=== PATIENT | female | born 1950 | race Caucasian/White ===

== ENCOUNTER 2017-11-14 15:06 | Inpatient (IN) | payer MEDICARE, MEDICAID ==
[~2017-11-14] VITALS: Ht 175.3 cm; Wt 70.8 kg
[~2017-11-14 15:06] MED LIST: ASPI81TA31 PO; Acetaminophen PO; CALC1TAB90 PO; CALC500T63 PO; CINA60TA PO; DEXL60CA3 PO; DOCU-141 PO; Docusate Sodium PO; FERR-38 PO; FOLI0.8T7 PO; PANT40TA2 PO; RISP1TAB7 PO; SEVE800T8 PO; TIZA4CAP6 PO; Tizanidine Hcl PO
[2017-11-14] MEDS ORDERED: IV NORMAL SALINE 500 ML BAG IV ONE (15:30)
[2017-11-14] MEDS ORDERED: ONDANSETRON 4 MG/2 ML VIAL IV ONE (15:30)
[2017-11-14] MEDS ORDERED: ACET-1467 PO (15:38)
[2017-11-14] MEDS ORDERED: SIME80TA14 PO (15:38)
[2017-11-14] MEDS ORDERED: SUCR1TAB PO (15:38)
[2017-11-14] MEDS ORDERED: ONDA4TAB5 PO (15:38)
[2017-11-14] MEDS ORDERED: PROT946L PO (15:38)
[2017-11-14] MEDS ORDERED: METH57CR8 TOP (15:38)
[2017-11-14 15:39] LABS: BASOPHILS % (AUTO) 0.2 % (0.0-2.0); EOSINOPHILS % (AUTO) 0.4 % (0.0-7.0); HEMATOCRIT 35.2 % (31.2-41.9); HEMOGLOBIN 11.6 g/dL (10.9-14.3); MEAN CORPUSCULAR HEMOGLOBIN 32.2 uug (24.7-32.8); MEAN CORPUSCULAR HGB CONC 33 g/dL (32.3-35.6); MEAN CORPUSCULAR VOLUME 97.5 fL (75.5-95.3); MONOCYTES # (AUTO) 0.5 K/uL (2.0-10.0); MONOCYTES % (AUTO) 6.5 % (0.0-11.0); NEUTROPHILS # (AUTO) 6.4 K/uL (1.8-8.9); NEUTROPHILS % (AUTO) 80.9 % (38.5-71.5); PLATELET COUNT (AUTO) 155 K/uL (179-408); RED BLOOD CELL COUNT(AUTO) 3.61 MIL/uL (3.63-4.92); WHITE BLOOD COUNT (AUTO) 7.9 K/uL (3.8-11.8)
[2017-11-14] MEDS ORDERED: ONDANSETRON 4 MG/2 ML VIAL ONE (15:43)
[2017-11-14 15:45] LABS: POTASSIUM 5.7 mmol/L (3.5-5.1)
[2017-11-14 16:00] LABS: BILIRUBIN,DIRECT 0.1 mg/dL (0.0-0.2); BILIRUBIN,TOTAL 0.4 mg/dL (0.2-1.0); TOTAL PROTEIN, SERUM 6.6 g/dL (6.4-8.2)
[2017-11-14 16:31] LABS: *BILIRUBIN,URIN NEGATIVE (NEGATIVE); *BLOOD, URINE NEGATIVE (NEGATIVE); *CLARITY,URINE CLEAR (CLEAR); *COLOR,URINE YELLOW (YELLOW); *KETONES,URINE NEGATIVE (NEGATIVE); *PROTEIN,URINE 3+ (NEGATIVE); *UROBILINOGEN,URINE 0.2 E.U./dl (NORMAL); LEUKOCYTE ESTERASE ,URINE NEGATIVE (NEGATIVE); NITRITE, URINE NEGATIVE (NEGATIVE); PH,URINE 8.5 (5.0-8.0); UGLUCOSE NEGATIVE (NEGATIVE)
[2017-11-14 16:41] LABS: SQUAMOUS EPITHELIAL CELL,UR FEW /HPF (NONE SEEN); WBC,URINE 0-3 /HPF (0-3)
[2017-11-14] MEDS ORDERED: SODIUM BICARBONATE 8.4% 50 MEQ/50 ML DISP.SYRIN IV ONE ×2 (18:43→18:45)
--- NOTE | 2017-11-14 18:46 | NUR ---
Patient discharged to home in stable conditon. Written and verbal after care instructions given. Patient verbalizes understanding of instructions.pt transfered to tele in stable condition. pt marielena david cp, nausea, sob at this time.
--- NOTE | 2017-11-14 18:52 | NUR ---
67 year old female received from er via iconDial for hyperkalemia v/s are stable.call light with in reach
[2017-11-14 18:55] VITALS: BP 145/58
--- NOTE | 2017-11-14 19:15 | NUR ---
RECEIVED REPORT FROM YAO FELIX. PT ARRIVED ON UNIT FLOOR AT 1845. WILL BE ADMITTING PT TO TELE PER MD ORDER. PT CURRENTLY IN BED, NO C/O PAIN, C/P, SOB, N/V. BED IN LOW AND LOCKED POSITION WITH BILATERAL UPPER SIDERAILS UP. CALL LIGHT WITHIN REACH. WILL ADMIN MEDS ORDERED BY MD. WILL CONTINUE TO MONITOR AND PROVIDE SAFETY PRECAUTIONS.
[2017-11-14] MEDS ORDERED: RISP0.253 PO (19:42)
[2017-11-14] MEDS ORDERED: ONDANSETRON HCL 4 MG TABLET PO PRN (19:45)
[2017-11-14] MEDS ORDERED: ACETAMINOPHEN/CODEINE 300-30 MG TABLET PO PRN (19:45)
[2017-11-14] MEDS ORDERED: METHYL SALICYLATE/MENTHOL CREAM 28 GM TUBE TOP PRN (19:45)
[2017-11-14] MEDS ORDERED: SIMETHICONE 80 MG TAB.CHEW PO PRN ×2 (19:45→20:55)
[2017-11-14] MEDS ORDERED: ACETAMINOPHEN 325 MG TABLET PO PRN (19:45)
[2017-11-14] MEDS ORDERED: TIZANIDINE HCL 4 MG TABLET PO PRN (19:45)
[2017-11-14 20:00] VITALS: BP 131/52
[2017-11-14] MEDS ORDERED: ONDANSETRON 4 MG/2 ML VIAL IV PRN (20:00)
[2017-11-14] MEDS ORDERED: SUCRALFATE 1 G TABLET PO SCH (21:00)
[2017-11-14] MEDS: DOCUSATE SODIUM 100 MG CAPSULE PO SCH (21:08)
[2017-11-14] MEDS: risperiDONE 0.25 MG TABLET PO SCH (21:08)
--- NOTE | 2017-11-15 | NUR ---
PT SLEEPING IN BED, EASILY AROUSABLE. PT DOES NOT APPEAR TO BE IN ANY APPARENT DISTRESS. PT NSR ON TELE MONITORING, HR 80. CALL LIGHT WITHIN REACH. WILL CONTINUE TO MONITOR.
[2017-11-15 04:00] VITALS: BP 127/41
--- NOTE | 2017-11-15 05:26 | NUR ---
PT SLEEPING COMFORTABLY IN BED, EASILY AROUSABLE. NO SIGNS OF APPARENT DISTRESS. NSR ON TELE MONITORING, HR 77. CALL LIGHT WITHIN REACH.
[2017-11-15 06:30] LABS: CREATININE 5.9 mg/dL (0.6-1.3); POTASSIUM 5.6 mmol/L (3.5-5.1)
[2017-11-15 06:47] LABS: BASOPHILS % (AUTO) 0.2 % (0.0-2.0); EOSINOPHILS # (AUTO) 0.1 K/uL (0.0-0.7); EOSINOPHILS % (AUTO) 1.1 % (0.0-7.0); HEMOGLOBIN 10.1 g/dL (10.9-14.3); LYMPHOCYTES # (AUTO) 1.6 K/uL (20.0-40.0); MEAN CORPUSCULAR HEMOGLOBIN 32.4 uug (24.7-32.8); MEAN CORPUSCULAR HGB CONC 33 g/dL (32.3-35.6); MEAN CORPUSCULAR VOLUME 98.3 fL (75.5-95.3); MONOCYTES # (AUTO) 0.5 K/uL (2.0-10.0); MONOCYTES % (AUTO) 8.3 % (0.0-11.0); NEUTROPHILS # (AUTO) 3.8 K/uL (1.8-8.9); NEUTROPHILS % (AUTO) 63.4 % (38.5-71.5); PLATELET COUNT (AUTO) 132 K/uL (179-408); RED BLOOD CELL COUNT(AUTO) 3.13 MIL/uL (3.63-4.92)
[2017-11-15 06:57] LABS: HEMATOCRIT 30.7 % (31.2-41.9)
[2017-11-15] MEDS: PROTEIN SUPPLEMENT (PROSTAT) 30 ML LIQUID PO SCH ×3 (08:00→16:15)
[2017-11-15] MEDS: TIZANIDINE HCL 4 MG TABLET PO SCH (08:30)
[2017-11-15] MEDS: PANTOPRAZOLE SODIUM 40 MG TABLET.DR PO SCH (08:30)
[2017-11-15] MEDS: SEVELAMER CARBONATE 800 MG TABLET PO SCH ×3 (08:30→17:04)
[2017-11-15] MEDS: FERROUS SULFATE 325 MG TABEC PO SCH (08:30)
[2017-11-15] MEDS: ASPIRIN 81 MG TAB.CHEW PO SCH (08:30)
[2017-11-15] MEDS: FOLIC ACID/VITAMIN B COMP W-C TABLET PO SCH (08:30)
[2017-11-15 11:18] VITALS: BP 74/37
--- NOTE | 2017-11-15 12:31 | NUR ---
AWAKE ALERT AND ORIENTED X3 NO SS OF PAIN OR DISTRESS AWAITING HEMODIALYSIS
--- NOTE | 2017-11-15 12:31 | NUR ---
TOLERATING ONGOING HEMODIALYSIS, SR ON MONITOR
--- NOTE | 2017-11-15 12:33 | NUR ---
SEEN BY HOSPITALIST SEE NOTES
[2017-11-15 15:26] VITALS: BP 109/46
[2017-11-15] MEDS: SUCRALFATE 1 G TABLET PO SCH ×2 (16:08→20:03)
--- NOTE | 2017-11-15 19:20 | NUR ---
Received patient lying in bed. AAOX3. Denies any pain or SOB. In no acute distress. NSR on tele. AV shunt on left upper arm intact. IV site on right wrist intact and patent. Safety measure initiated and call heck within reach.
[2017-11-15 19:30] VITALS: BP 140/57
--- NOTE | 2017-11-15 19:53 | NUR ---
Telemetry discontinued per Dr. Werner's order.
[2017-11-15] MEDS: risperiDONE 0.25 MG TABLET PO SCH (20:02)
[2017-11-15] MEDS: DOCUSATE SODIUM 100 MG CAPSULE PO SCH (20:02)
[2017-11-15] MEDS: CINACALCET HCL 30 MG TABLET PO SCH (20:02)
[2017-11-16 03:47] VITALS: BP 117/44
[2017-11-16] MEDS: SUCRALFATE 1 G TABLET PO SCH ×5 (06:32→20:10)
--- NOTE | 2017-11-16 06:35 | NUR ---
AAOX3. Denies any pain or SOB. In no acute distress. NSR on tele. AV shunt on left upper arm intact. IV site on right wrist intact and patent. needs attended to and met. Safety measure maintained and call heck within reach. Addendum: 11/16/17 at 0635 by ISAURA RANDHAWA RN No tele.
[2017-11-16] MEDS: ONDANSETRON 4 MG/2 ML VIAL IV PRN (07:53)
[2017-11-16] MEDS: PROTEIN SUPPLEMENT (PROSTAT) 30 ML LIQUID PO SCH ×4 (08:00→16:50)
[2017-11-16] MEDS: SEVELAMER CARBONATE 800 MG TABLET PO SCH ×3 (08:00→16:50)
[2017-11-16] MEDS: ASPIRIN 81 MG TAB.CHEW PO SCH (09:00)
[2017-11-16] MEDS: PANTOPRAZOLE SODIUM 40 MG TABLET.DR PO SCH (09:00)
[2017-11-16] MEDS: TIZANIDINE HCL 4 MG TABLET PO SCH (09:00)
[2017-11-16] MEDS: FOLIC ACID/VITAMIN B COMP W-C TABLET PO SCH (09:00)
[2017-11-16] MEDS: FERROUS SULFATE 325 MG TABEC PO SCH (09:00)
--- NOTE | 2017-11-16 09:57 | NUR ---
PATIENT STATES THE NAUSEA FEELING JUST WENT AWAY AND DOES NOT WANT TO TAKE ANY MEDICATIONS AND HAVE IT COME BACK
[2017-11-16 11:22] VITALS: BP 129/51
[2017-11-16 11:32] LABS: *BILIRUBIN,URIN NEGATIVE (NEGATIVE); *BLOOD, URINE NEGATIVE (NEGATIVE); *CLARITY,URINE CLEAR (CLEAR); *COLOR,URINE LIGHT YELLOW (YELLOW); *KETONES,URINE NEGATIVE (NEGATIVE); *PROTEIN,URINE 2+ (NEGATIVE); *UROBILINOGEN,URINE 0.2 E.U./dl (NORMAL); LEUKOCYTE ESTERASE ,URINE 1+ (NEGATIVE); NITRITE, URINE NEGATIVE (NEGATIVE); PH,URINE 8.5 (5.0-8.0); UGLUCOSE NEGATIVE (NEGATIVE)
[2017-11-16 11:42] LABS: BACTERIA,URINE FEW /HPF (NONE SEEN); RBC,URINE 0-3 /HPF (0-3); SQUAMOUS EPITHELIAL CELL,UR FEW /HPF (NONE SEEN)
[2017-11-16 15:28] VITALS: BP 113/51
--- NOTE | 2017-11-16 17:50 | NUR ---
PATIENT DENIES NAUSEA AT THIS TIME, URINE SENT PER ORDERS, PATIENT RECEIVING HD AT THIS TIME, VSS, NO FALLS THROUGHOUT SHIFT, CALL LIGHT IN REACH
[2017-11-16 19:00] VITALS: BP 135/53
--- NOTE | 2017-11-16 19:15 | NUR ---
Received patient lying in bed. AAOX3. Denies any pain, SOB or nausea. In no acute distress. AV shunt on left upper arm intact. IV site on right wrist intact and patent. Needs assessed and attended to. Safety measure initiated and call heck within reach.
[2017-11-16] MEDS: CINACALCET HCL 30 MG TABLET PO SCH (20:09)
[2017-11-16] MEDS: risperiDONE 0.25 MG TABLET PO SCH (20:10)
[2017-11-16] MEDS: DOCUSATE SODIUM 100 MG CAPSULE PO SCH (20:10)
[2017-11-17 04:00] VITALS: BP 135/56
--- NOTE | 2017-11-17 06:19 | NUR ---
AAOX3. Denies any pain or SOB. In no acute distress. AV shunt on left upper arm intact. IV site on right wrist intact and patent. Needs attended to and met. Safety measure maintained and call heck within reach.
[2017-11-17] MEDS: SUCRALFATE 1 G TABLET PO SCH ×4 (06:31→20:12)
--- NOTE | 2017-11-17 07:00 | NUR ---
RECEIVED REPORT FROM RYANN COOMBS. PATIENT IN ROOM, ASLEEP, AAOX3 NO ACUTE DISTRESS NOTED. IV SITE ON THE RIGHT WRIST #22 INTACT AND PATENT. LEFT UPPER ARM AV SHUNT NOTED. INDEPENDENT WITH ADLS, AMBULATORY W/ 4WW, DIALYSIS YESTERDAY 1L TAKEN OUT. COMFORT MEASURES PROVIDED CALL LIGHT WITHIN REACH WILL CONTINUE TO MONITOR CLOSELY.
[2017-11-17 07:51] LABS: CREATININE 3.9 mg/dL (0.6-1.3); POTASSIUM 4.3 mmol/L (3.5-5.1)
[2017-11-17] MEDS: FOLIC ACID/VITAMIN B COMP W-C TABLET PO SCH (08:30)
[2017-11-17] MEDS: PROTEIN SUPPLEMENT (PROSTAT) 30 ML LIQUID PO SCH ×3 (08:30→17:12)
[2017-11-17] MEDS: PANTOPRAZOLE SODIUM 40 MG TABLET.DR PO SCH (08:30)
[2017-11-17] MEDS: SEVELAMER CARBONATE 800 MG TABLET PO SCH ×3 (08:30→17:12)
[2017-11-17] MEDS: ASPIRIN 81 MG TAB.CHEW PO SCH (08:30)
[2017-11-17] MEDS: FERROUS SULFATE 325 MG TABEC PO SCH (08:30)
[2017-11-17] MEDS: TIZANIDINE HCL 4 MG TABLET PO SCH (08:30)
[2017-11-17] MEDS: ONDANSETRON 4 MG/2 ML VIAL IV PRN (08:38)
[2017-11-17 11:40] VITALS: BP 105/45
[2017-11-17 16:09] VITALS: BP 103/65
[2017-11-17 16:11] VITALS: BP 100/68
--- NOTE | 2017-11-17 17:45 | NUR ---
PATIENT IN BED, AWAKE, STABLE CONDITION. NAUSEA EPISODE X 1, ZOFRAN PRN GIVEN, WELL TOLERATED. NO COMPLAINTS OF N/V THE REST OF SHIFT. VITAL SIGNS STABLE. NO COMPLAINTS OF PAIN/DISCOMFORT. ALL NEEDS ATTENDED AND ANTICIPATED. WILLC OTNINUE TO MONITOR CLOSELY.
[2017-11-17 19:00] VITALS: BP 116/51
[2017-11-17] MEDS: CINACALCET HCL 30 MG TABLET PO SCH (20:11)
[2017-11-17] MEDS: DOCUSATE SODIUM 100 MG CAPSULE PO SCH (20:12)
[2017-11-17] MEDS: risperiDONE 0.25 MG TABLET PO SCH (20:12)
--- NOTE | 2017-11-17 21:00 | NUR ---
Nursing Note: Pt resting comfortably in bed. Respirations even and unlabored. R Wrist 20g IV site intact and patent. Bowel sounds present in all 4 quadrants. Abdomen soft and non distended. No complaints of nausea or vomiting at this time. All due medications administered and effective. Bed in low and locked position. Call light in reach at all times. Will continue to monitor.
--- NOTE | 2017-11-18 | NUR ---
Nursing Note: Pt noted to be sleeping. No acute distress noted at this time. No nausea, vomiting diarrhea or constipation. Bed in low and locked position. Call light in reach at all times. Will continue to monitor.
[2017-11-18 04:00] VITALS: BP 140/65
--- NOTE | 2017-11-18 05:33 | NUR ---
Nursing Note: Pt appears to be sleeping soundly at this time. Frequent visual check. Bed in low and locked position. Pt on fall precautions. Call light in reach all times. No episodes of vomiting. Will continue to monitor.
[2017-11-18] MEDS: SUCRALFATE 1 G TABLET PO SCH ×2 (06:49→11:23)
[2017-11-18] MEDS: PROTEIN SUPPLEMENT (PROSTAT) 30 ML LIQUID PO SCH ×2 (08:44→11:23)
[2017-11-18] MEDS: PANTOPRAZOLE SODIUM 40 MG TABLET.DR PO SCH (08:45)
[2017-11-18] MEDS: FOLIC ACID/VITAMIN B COMP W-C TABLET PO SCH (08:45)
[2017-11-18] MEDS: FERROUS SULFATE 325 MG TABEC PO SCH (08:45)
[2017-11-18] MEDS: ASPIRIN 81 MG TAB.CHEW PO SCH (08:45)
[2017-11-18] MEDS: TIZANIDINE HCL 4 MG TABLET PO SCH (08:45)
[2017-11-18] MEDS: SEVELAMER CARBONATE 800 MG TABLET PO SCH ×2 (08:45→11:23)
--- NOTE | 2017-11-18 08:50 | NUR ---
NEW ORDERS NOTED FROM DR GEE TO DISCHARGE PATIENT HOME TODAY PATIENT STATED THAT SHE LIVES AT THE [facility] WILL HAVE THE ASSEMBLY MACHINE FEEDER TO ARRANGE FOR HER FINAL DISPOSITION.
[2017-11-18 11:33] VITALS: BP 100/40
--- NOTE | 2017-11-18 14:07 | NUR ---
PER THE VAULT MANAGER [facility] IS NOT ABLE TO PICK PATIENT UP STATED STATED WILL ARRANGE FOR PATIENT TO BE TRANSPORTED BY [facility] PATIENT AWARE WILL FINALISE THE DISCHARGE.
--- NOTE | 2017-11-18 15:05 | NUR ---
CALLED THE [facility] AND SPOKE WITH JOHN PATIENT HAS A [facility] VOUCHER SOMEONE WILL BE HERE TO PICK PATIENT UP
--- NOTE | 2017-11-18 15:45 | NUR ---
[facility] STILL NOT HERE CALLED AGAIN AND SPOKE WITH KELLI STATED THAT SOMEONE IS COMING SOON POSSIBLE.
--- NOTE | 2017-11-18 15:50 | NUR ---
PATIENT DISCHARGED PICKED UP BY [facility] WITH ALL OF HER DISCHARGE INSTRUCTIONS TO FOLLOW UP WITH DR VYAS AND DR RIVAS AND TO CONTINUE WITH DIALYSIS ORDERED AND SHE EXPRESSED UNDERSTANDING
--- NOTE | 2017-11-18 15:52 | NUR ---
CALLED [facility] SPOKE WITH KELLI PAYTON PATIENT IS ON HER WAY AND SOMEONE NEEDED TO BE WAITING FOR HER WITH A W/CHAIR AND SHE STATED WILL INFORM THE MACHINE SET UP OPERATOR P[employer]ER GOODS.
== END 2017-11-18 15:50 | DRG 640 ==
LOC: ER 15:09 → TELE 18:08 → MED 11-15 19:53
PROVIDERS: ADMIT Internal Medicine Nephrology; ATTEND Internal Medicine
PROC: 5A1D70Z Performance of Urinary Filtration, Intermittent, Less than 6 Hours Per Day (ICD-10-PCS; principal; 2017-11-15)
DX: E87.5 Hyperkalemia (principal); N18.6 End stage renal disease; R53.2 Functional quadriplegia; I12.0 Hypertensive chronic kidney disease with stage 5 chronic kidney disease or end stage renal disease; K52.9 Noninfective gastroenteritis and colitis, unspecified; Z99.2 Dependence on renal dialysis; E83.52 Hypercalcemia; T45.2X5A Adverse effect of vitamins, initial encounter; Y92.099 Unspecified place in other non-institutional residence as the place of occurrence of the external cause; G89.4 Chronic pain syndrome; M47.26 Other spondylosis with radiculopathy, lumbar region; M46.98 Unspecified inflammatory spondylopathy, sacral and sacrococcygeal region; M46.1 Sacroiliitis, not elsewhere classified; M48.00 Spinal stenosis, site unspecified; M19.90 Unspecified osteoarthritis, unspecified site; K21.9 Gastro-esophageal reflux disease without esophagitis; M51.17 Intervertebral disc disorders with radiculopathy, lumbosacral region; D69.6 Thrombocytopenia, unspecified; E03.9 Hypothyroidism, unspecified; Z79.899 Other long term (current) drug therapy; Z79.82 Long term (current) use of aspirin; R26.9 Unspecified abnormalities of gait and mobility; D53.9 Nutritional anemia, unspecified; Z91.15 Patient's noncompliance with renal dialysis
CPT/HCPCS: 36415; 70030-TC; 83690; 85025; 87086; 93005; 97116; 97530; A4663; C1758; J2405; J3490; J7040

== ENCOUNTER 2018-07-08 00:43 | Emergency (ER) | payer MEDICARE, MEDICAID ==
[~2018-07-08] VITALS: Ht 175.3 cm; Wt 69.4 kg
[~2018-07-08 00:43] MED LIST changes: +ACET-1467 PO; -CALC1TAB90 PO; -CALC500T63 PO; -DEXL60CA3 PO; -Docusate Sodium PO; +METH57CR8 TOP; +ONDA4TAB5 PO; +PROT946L PO; +RISP0.253 PO; -RISP1TAB7 PO; +SIME80TA14 PO; +SUCR1TAB PO; -Tizanidine Hcl PO
--- NOTE | 2018-07-08 00:56 | NUR ---
Pt bib private ambulance from [facility] with c/o fever of 99.0F & 2 episodes of N/V that started 3 hrs prior to arrival. Pt temp upon triage is 98.2F. Does not appear in apparent distress. No chest pain or sob. AAOx4. Uses walker to ambulate. Pt has shunt to left upper extremity, states does dialysis on [id number]. Pt placed on continuous cardiac monitoring. Will continue to monitor.
[2018-07-08] MEDS ORDERED: VIT1TABL46 PO (01:07)
[2018-07-08] MEDS ORDERED: FOLI1TAB16 PO (01:07)
--- NOTE | 2018-07-08 01:31 | NUR ---
Orthostatic vital signs taken flat - BP 166/74 HR 74 sitting - BP 158/83 HR 75
[2018-07-08] MEDS: ONDANSETRON ODT 4 MG TAB.RAPDIS SL ONE (01:34)
[2018-07-08] MEDS ORDERED: ONDANSETRON ODT 4 MG TAB.RAPDIS ONE (01:35)
[2018-07-08 01:47] LABS: BASOPHILS % (AUTO) 0.6 % (0.0-2.0); EOSINOPHILS % (AUTO) 0.5 % (0.0-7.0); HEMATOCRIT 30.3 % (31.2-41.9); HEMOGLOBIN 9.9 g/dL (10.9-14.3); LYMPHOCYTES # (AUTO) 0.8 K/uL (20.0-40.0); LYMPHOCYTES % (AUTO) 13.5 % (20.5-51.5); MEAN CORPUSCULAR HEMOGLOBIN 30.4 uug (24.7-32.8); MEAN CORPUSCULAR HGB CONC 33 g/dL (32.3-35.6); MEAN CORPUSCULAR VOLUME 93.2 fL (75.5-95.3); MONOCYTES # (AUTO) 0.4 K/uL (2.0-10.0); NEUTROPHILS # (AUTO) 4.9 K/uL (1.8-8.9); NEUTROPHILS % (AUTO) 79.4 % (38.5-71.5); PLATELET COUNT (AUTO) 156 K/uL (179-408); RED BLOOD CELL COUNT(AUTO) 3.25 MIL/uL (3.63-4.92); WHITE BLOOD COUNT (AUTO) 6.1 K/uL (3.8-11.8)
--- NOTE | 2018-07-08 01:57 | NUR ---
Pt resting in bed. States she does not feel nauseous anymore.
[2018-07-08 02:18] LABS: BILIRUBIN,DIRECT 0.2 mg/dL (0.0-0.2); BILIRUBIN,TOTAL 0.4 mg/dL (0.2-1.0); CREATININE 5.5 mg/dL (0.6-1.3); POTASSIUM 4.7 mmol/L (3.5-5.1); TOTAL PROTEIN, SERUM 6.5 g/dL (6.4-8.2)
--- NOTE | 2018-07-08 03:31 | NUR ---
Imtiaz medina for transport back to [facility]. ETA 45 min to 1 hr. Trip#[id number]
--- NOTE | 2018-07-08 03:33 | NUR ---
Gave report to [facility] & informed pt is stable for discharge from ER.
--- NOTE | 2018-07-08 04:00 | NUR ---
Pt is sleeping comfortably in bed. No acute distress noted.
--- NOTE | 2018-07-08 04:30 | NUR ---
Paged carol regarding Trip#[id number]. ETA 20 more min.
--- NOTE | 2018-07-08 05:00 | NUR ---
Ambuln unit 230 here to transfer pt back to [facility]. Patient discharged to home in stable conditon. Written and verbal after care instructions given. Patient verbalizes understanding of instructions. No acute distress noted. Vital signs stable.
[2018-07-08 05:01] VITALS: BP 138/68
== END 2018-07-08 05:03 | disposition home or self-care (01) ==
LOC: ER 00:47
DX: R11.2 Nausea with vomiting, unspecified (principal); K21.9 Gastro-esophageal reflux disease without esophagitis; I12.0 Hypertensive chronic kidney disease with stage 5 chronic kidney disease or end stage renal disease; N18.6 End stage renal disease; Z79.82 Long term (current) use of aspirin; Z79.899 Other long term (current) drug therapy
CPT/HCPCS: 36415; 70030-TC; 71045; 83605; 83690; 85025; 85730; 87040; 93005; A4663; J7030; Q0162

== ENCOUNTER 2018-08-04 22:35 | Inpatient (IN) | payer MEDICARE, MEDICAID ==
[~2018-08-04] VITALS: Ht 165.1 cm; Wt 71.2 kg
[~2018-08-04 22:35] MED LIST changes: -ACET-1467 PO; -FOLI0.8T7 PO; +FOLI1TAB16 PO; -PROT946L PO; +VIT1TABL46 PO
[2018-08-04 23:39] LABS: BASOPHILS % (AUTO) 0.7 % (0.0-2.0); EOSINOPHILS # (AUTO) 0.1 K/uL (0.0-0.7); EOSINOPHILS % (AUTO) 1.3 % (0.0-7.0); HEMATOCRIT 32.4 % (31.2-41.9); HEMOGLOBIN 10.4 g/dL (10.9-14.3); LYMPHOCYTES # (AUTO) 1.2 K/uL (20.0-40.0); LYMPHOCYTES % (AUTO) 18.9 % (20.5-51.5); MEAN CORPUSCULAR HEMOGLOBIN 30.4 uug (24.7-32.8); MEAN CORPUSCULAR HGB CONC 32 g/dL (32.3-35.6); MEAN CORPUSCULAR VOLUME 94.5 fL (75.5-95.3); MONOCYTES # (AUTO) 0.4 K/uL (2.0-10.0); MONOCYTES % (AUTO) 6.4 % (0.0-11.0); NEUTROPHILS # (AUTO) 4.5 K/uL (1.8-8.9); NEUTROPHILS % (AUTO) 72.7 % (38.5-71.5); PLATELET COUNT (AUTO) 124 K/uL (179-408); RED BLOOD CELL COUNT(AUTO) 3.42 MIL/uL (3.63-4.92); WHITE BLOOD COUNT (AUTO) 6.1 K/uL (3.8-11.8)
[2018-08-04 23:44] LABS: CREATININE 4.9 mg/dL (0.6-1.3); POTASSIUM 4.6 mmol/L (3.5-5.1)
[2018-08-04 23:45] LABS: *BILIRUBIN,URIN NEGATIVE (NEGATIVE); *BLOOD, URINE NEGATIVE (NEGATIVE); *CLARITY,URINE CLEAR (CLEAR); *COLOR,URINE YELLOW (YELLOW); *KETONES,URINE NEGATIVE (NEGATIVE); *UROBILINOGEN,URINE 0.2 E.U./dl (NORMAL); LEUKOCYTE ESTERASE ,URINE 1+ (NEGATIVE); NITRITE, URINE NEGATIVE (NEGATIVE); PH,URINE 8.5 (5.0-8.0); UGLUCOSE NEGATIVE (NEGATIVE)
[2018-08-04 23:50] LABS: BACTERIA,URINE NONE SEEN /HPF (NONE SEEN); RBC,URINE 0-3 /HPF (0-3)
[2018-08-04 23:51] LABS: SQUAMOUS EPITHELIAL CELL,UR FEW /HPF (NONE SEEN)
[2018-08-04 23:59] LABS: BILIRUBIN,DIRECT 0.1 mg/dL (0.0-0.2); BILIRUBIN,TOTAL 0.3 mg/dL (0.2-1.0); TOTAL PROTEIN, SERUM 5.8 g/dL (6.4-8.2)
[2018-08-05] MEDS ORDERED: ONDANSETRON 4 MG/2 ML VIAL IV ONE (02:15)
[2018-08-05] MEDS ORDERED: METRONIDAZOLE 500 MG/NS 100 ML PIGGYBACK IV ONE (02:15)
[2018-08-05] MEDS ORDERED: MORPHINE SULFATE 2 MG/1 ML DISP.SYRIN IV ONE (02:15)
[2018-08-05] MEDS ORDERED: LEVOFLOXACIN 500 MG/D5W 100ML PIGGYBACK IV ONE (02:15)
[2018-08-05] MEDS ORDERED: ACET1TAB23 PO (02:18)
[2018-08-05] MEDS ORDERED: ONDA8TAB6 PO (02:18)
[2018-08-05] MEDS ORDERED: FOLI0.8T2 PO (02:18)
[2018-08-05] MEDS ORDERED: MORPHINE SULFATE 2 MG/1 ML DISP.SYRIN ONE (02:19)
[2018-08-05] MEDS ORDERED: ONDANSETRON 4 MG/2 ML VIAL ONE (02:19)
[2018-08-05] MEDS ORDERED: LEVOFLOXACIN 500 MG/D5W 100 ML ONE (02:19)
[2018-08-05] MEDS ORDERED: METRONIDAZOLE 500 MG/NS 100ML 100 ML IV ONE ×2 (02:20→05:36)
--- NOTE | 2018-08-05 03:26 | NUR ---
Antibiotic started in ER, floor nurse to complete once patient arrives on unit.
--- NOTE | 2018-08-05 03:28 | NUR ---
Pt. admitted to m/s 316, under care of Dr. GEE Belongs List completed.
--- NOTE | 2018-08-05 03:45 | NUR ---
Received patient from ER via [facility]. A/O x 4. Ambulatory with [facility]. Patient is hard of hearing. Vital signs stable with a slight elevation of BP 165/54. C/O pain in the right hip area. Awaiting orders from Dr. Nicole. Sating 98% on RA. Noted left upper arm AV shunt, Thrill/bruit present. IV Abx infusing in the right FA, patent and intact. long-term assessment done, skin intact with multiple bruises in upper and lower ext. Bowel sounds present. Abd, soft. Safety initiated. Call light within reach. Room is clutter free. Will continue to monitor.
[2018-08-05 04:00] VITALS: BP 165/54
[2018-08-05] MEDS ORDERED: HYDROCODONE/APAP 5-325MG TABLET PO PRN (05:15)
[2018-08-05] MEDS ORDERED: Z GUARD REMEDY PASTE 57 GM TUBE TOP PRN (05:15)
[2018-08-05] MEDS ORDERED: ACETAMINOPHEN 325 MG TABLET PO PRN (05:15)
[2018-08-05] MEDS ORDERED: ZOLPIDEM 5 MG TABLET PO PRN (05:15)
[2018-08-05] MEDS ORDERED: ONDANSETRON 4 MG/2 ML VIAL IV PRN (05:15)
[2018-08-05] MEDS: METRONIDAZOLE 500 MG/NS 100ML 500 MG in PREMIXED 1 EACH IV SCH ×3 (05:42→21:36)
--- NOTE | 2018-08-05 05:49 | NUR ---
C/O pain in the right hip. 09/08. [place] given, will continue to monitor.
[2018-08-05 05:51] VITALS: BP 146/60
--- NOTE | 2018-08-05 06:11 | NUR ---
No changes t/o shift. C/o pain in the right side. In room air. Vital signs stable but BP is still elevated secondary to the pain. Medication given. Stated relief. BP has gone down 146/72. Safety and comfort measures maintained t/o shift.
[2018-08-05 06:47] LABS: BASOPHILS % (AUTO) 0.2 % (0.0-2.0); EOSINOPHILS # (AUTO) 0.1 K/uL (0.0-0.7); EOSINOPHILS % (AUTO) 1.8 % (0.0-7.0); HEMATOCRIT 29.6 % (31.2-41.9); HEMOGLOBIN 9.6 g/dL (10.9-14.3); LYMPHOCYTES # (AUTO) 1.2 K/uL (20.0-40.0); LYMPHOCYTES % (AUTO) 20.8 % (20.5-51.5); MEAN CORPUSCULAR HEMOGLOBIN 30.8 uug (24.7-32.8); MEAN CORPUSCULAR HGB CONC 32 g/dL (32.3-35.6); MEAN CORPUSCULAR VOLUME 95.2 fL (75.5-95.3); MONOCYTES # (AUTO) 0.4 K/uL (2.0-10.0); MONOCYTES % (AUTO) 7.5 % (0.0-11.0); NEUTROPHILS # (AUTO) 4.1 K/uL (1.8-8.9); NEUTROPHILS % (AUTO) 69.7 % (38.5-71.5); PLATELET COUNT (AUTO) 108 K/uL (179-408); RED BLOOD CELL COUNT(AUTO) 3.11 MIL/uL (3.63-4.92); WHITE BLOOD COUNT (AUTO) 5.8 K/uL (3.8-11.8)
--- NOTE | 2018-08-05 07:12 | NUR ---
RECEIVED PATIENT IN BED WITH DX OF DIVERTICULITIS, NO C/O PAIN AT THIS TIME. , ALERT AND ORIENTED, ABLE TO MAKE NEEDS KNOW. IV ON THE RIGHT FOREARM, INTACT AND PATENT. KEPT CLEAN AND DRY AT ALL TIMES. PROVIDE SAFETY AND COMFORT AT ALL TIMES. WILL CONTINUE TO MONITOR AND TREATMENT PLAN.
[2018-08-05 07:13] LABS: BILIRUBIN,TOTAL 0.3 mg/dL (0.2-1.0); CREATININE 4.8 mg/dL (0.6-1.3); PHOSPHOROUS 2.5 mg/dL (2.5-4.9); POTASSIUM 4.8 mmol/L (3.5-5.1); TOTAL PROTEIN, SERUM 5.3 g/dL (6.4-8.2)
[2018-08-05] MEDS ORDERED: ACETAMINOPHEN/CODEINE 300-30 MG TABLET PO PRN (08:45)
[2018-08-05] MEDS: PANTOPRAZOLE SODIUM 40 MG TABLET.DR PO SCH ×2 (09:00→17:00)
[2018-08-05] MEDS: DOCUSATE SODIUM 100 MG CAPSULE PO SCH (09:00)
[2018-08-05] MEDS ORDERED: SUCRALFATE 1 G TABLET PO SCH (09:00)
[2018-08-05] MEDS: FERROUS SULFATE 325 MG TABEC PO SCH (09:00)
[2018-08-05] MEDS: ASPIRIN 81 MG TAB.CHEW PO SCH (09:00)
[2018-08-05] MEDS: FOLIC ACID 1 MG TABLET PO SCH (09:00)
[2018-08-05] MEDS: FOLIC ACID/VITAMIN B COMP W-C TABLET PO SCH (10:10)
[2018-08-05 11:18] VITALS: BP 164/65
[2018-08-05 16:00] VITALS: BP 122/50
[2018-08-05 18:30] VITALS: BP 155/79
--- NOTE | 2018-08-05 18:58 | NUR ---
PATIENT IN BED WITH DX OF DIVERTICULITIS, NO C/O PAIN AT THIS TIME. , ALERT AND ORIENTED, ABLE TO MAKE NEEDS KNOW. IV ON THE RIGHT FOREARM, INTACT AND PATENT. KEPT CLEAN AND DRY AT ALL TIMES. JUST HAD HER DIALYSIS WITH REMOVED FLUID OF 1500ML, NO C/O PAIN AT THIS TIME. PROVIDE SAFETY AND COMFORT AT ALL TIMES. WILL CONTINUE TO MONITOR AND TREATMENT PLAN.
[2018-08-05 20:00] VITALS: BP 144/62
[2018-08-05] MEDS: risperiDONE 0.25 MG TABLET PO SCH (20:20)
[2018-08-06 04:05] VITALS: BP 119/49
[2018-08-06] MEDS: METRONIDAZOLE 500 MG/NS 100ML 500 MG in PREMIXED 1 EACH IV SCH ×3 (06:02→22:01)
[2018-08-06] MEDS: PANTOPRAZOLE SODIUM 40 MG TABLET.DR PO SCH ×2 (06:03→17:32)
[2018-08-06 06:16] LABS: CREATININE 3.5 mg/dL (0.6-1.3); MAGNESIUM 1.7 mg/dL (1.8-2.4); PHOSPHOROUS 3.4 mg/dL (2.5-4.9); POTASSIUM 4.9 mmol/L (3.5-5.1)
[2018-08-06 06:17] LABS: BASOPHILS % (AUTO) 0.2 % (0.0-2.0); EOSINOPHILS # (AUTO) 0.1 K/uL (0.0-0.7); EOSINOPHILS % (AUTO) 1.7 % (0.0-7.0); HEMATOCRIT 31.7 % (31.2-41.9); HEMOGLOBIN 10.3 g/dL (10.9-14.3); LYMPHOCYTES # (AUTO) 0.8 K/uL (20.0-40.0); LYMPHOCYTES % (AUTO) 17.5 % (20.5-51.5); MEAN CORPUSCULAR HEMOGLOBIN 30.7 uug (24.7-32.8); MEAN CORPUSCULAR HGB CONC 33 g/dL (32.3-35.6); MEAN CORPUSCULAR VOLUME 94.6 fL (75.5-95.3); MONOCYTES # (AUTO) 0.4 K/uL (2.0-10.0); MONOCYTES % (AUTO) 8.3 % (0.0-11.0); NEUTROPHILS # (AUTO) 3.3 K/uL (1.8-8.9); NEUTROPHILS % (AUTO) 72.3 % (38.5-71.5); PLATELET COUNT (AUTO) 115 K/uL (179-408); RED BLOOD CELL COUNT(AUTO) 3.35 MIL/uL (3.63-4.92); WHITE BLOOD COUNT (AUTO) 4.5 K/uL (3.8-11.8)
--- NOTE | 2018-08-06 06:40 | NUR ---
Patient AAOx4. Patient slept well in between care. IV on R FA intact and patent with Flagyl running at this time. AV shunt on JAKE noted. Denies pain. No SOB. VSS. NO acute distress noted. Safety and comfort measures implemented and effective. All needs met. Call light within reach. Continue plan of care.
--- NOTE | 2018-08-06 07:10 | NUR ---
RECEIVED PATIENT IN BED WITH DX OF DIVERTICULITIS, NO C/O PAIN AT THIS TIME. , ALERT AND ORIENTED, ABLE TO MAKE NEEDS KNOW. IV ON THE RIGHT FOREARM, INTACT AND PATENT. PROVIDE SAFETY AND COMFORT AT ALL TIMES. WILL CONTINUE TO MONITOR AND TREATMENT PLAN.
[2018-08-06 08:06] LABS: HEPATITIS B SURFACE AB Reactive (.); HEPATITIS B SURFACE AG Negative (Negative)
[2018-08-06] MEDS: FOLIC ACID 1 MG TABLET PO SCH (08:26)
[2018-08-06] MEDS: DOCUSATE SODIUM 100 MG CAPSULE PO SCH (08:26)
[2018-08-06] MEDS: FOLIC ACID/VITAMIN B COMP W-C TABLET PO SCH (08:26)
[2018-08-06] MEDS: FERROUS SULFATE 325 MG TABEC PO SCH (08:26)
[2018-08-06] MEDS: ASPIRIN 81 MG TAB.CHEW PO SCH (08:26)
[2018-08-06] MEDS ORDERED: LEVOFLOXACIN 500 MG/D5W 500 MG in PREMIXED 1 EACH IV SCH ×2 (09:00→21:00)
[2018-08-06] MEDS: CARBAMIDE PEROXIDE OTIC DROP 15 ML BOTTLE EACH EAR SCH ×2 (10:36→20:20)
--- NOTE | 2018-08-06 15:00 | NUR ---
No changes t/o shift. In room air. A/O x 4, Vital signs stable Medication given.cooperative with plan of care.Safety and comfort measures maintained t/o shift.will continue plan of care
[2018-08-06 15:15] VITALS: BP 125/56
--- NOTE | 2018-08-06 19:03 | NUR ---
patient is resting in her bed comfortably, no s/s of distress noted, no pain reported, bed in low position, call light within reach, safety and comfort are provided, will endorse to manager shift nurse to continue plan of care
[2018-08-06 19:24] VITALS: BP 127/50
[2018-08-06] MEDS: risperiDONE 0.25 MG TABLET PO SCH (20:20)
[2018-08-07 03:27] VITALS: BP 149/64
--- NOTE | 2018-08-07 06:21 | NUR ---
Patient AAOx4. Currently resting in bed, awaiting dialysis this morning. Compliant with medications and plan of care. No acute distress noted. Denies pain. No SOB. Comfort and safety measures implemented at all times. NO change in status. IV on right FA intact and patent. AV shunt on JAKE noted. Continue plan of care.
[2018-08-07] MEDS: PANTOPRAZOLE SODIUM 40 MG TABLET.DR PO SCH ×2 (06:39→17:21)
[2018-08-07] MEDS: METRONIDAZOLE 500 MG/NS 100ML 500 MG in PREMIXED 1 EACH IV SCH ×3 (06:40→21:10)
[2018-08-07] MEDS: CARBAMIDE PEROXIDE OTIC DROP 15 ML BOTTLE EACH EAR SCH ×2 (09:00→21:10)
[2018-08-07] MEDS: ASPIRIN 81 MG TAB.CHEW PO SCH (10:41)
[2018-08-07] MEDS: FOLIC ACID 1 MG TABLET PO SCH (10:41)
[2018-08-07] MEDS: FOLIC ACID/VITAMIN B COMP W-C TABLET PO SCH (10:41)
[2018-08-07] MEDS: DOCUSATE SODIUM 100 MG CAPSULE PO SCH (10:41)
[2018-08-07] MEDS: FERROUS SULFATE 325 MG TABEC PO SCH (10:41)
[2018-08-07 11:04] VITALS: BP 147/77
[2018-08-07 16:00] VITALS: BP 117/62
--- NOTE | 2018-08-07 18:13 | NUR ---
PATIENT ALERT ORIENTED X 4. PT. HAD DIALYSIS THIS MORNING. DIALYSIS NURSE REPORTED TAKING OUT 1.5 LITERS. VITALS WERE STABLE AFTER DIALYSIS AND THROUGHOUT DAY. COMPLIANT ON MEDS. NO ACUTE DISTRESS. PT. DENIES PAIN. NO CHANGE IN IV STATUS. IV ON RIGHT FOREARM 20 GAUGE. AV SHUNT ON LEFT UPPER ARM. COMFORT AND SAFETY MEASURES IMPLEMENTED.
[2018-08-07 20:00] VITALS: BP 130/56
[2018-08-07] MEDS: risperiDONE 0.25 MG TABLET PO SCH (21:10)
--- NOTE | 2018-08-07 21:48 | NUR ---
Received pt awake, alert and orientedx4. Pt shows no signs of acute distress. Iv intact. Call light within reach. Safety and comfort provided. Will continue to monitor.
[2018-08-08] MEDS: METRONIDAZOLE 500 MG/NS 100ML 500 MG in PREMIXED 1 EACH IV SCH ×2 (05:03→14:02)
[2018-08-08 05:24] VITALS: BP 125/50
[2018-08-08] MEDS: PANTOPRAZOLE SODIUM 40 MG TABLET.DR PO SCH ×2 (06:12→17:51)
--- NOTE | 2018-08-08 06:55 | NUR ---
SHIFT REPORT GIVEN TO AM NURSE. PATIENT INTERMITTENTLY SLEEPING. A/O X4. COMFORT MEASURES PROVIDED. BED IN LOWEST POSITION. SIDE RAILS UP X2.
--- NOTE | 2018-08-08 07:15 | NUR ---
received pt. alert oriented x4. IV in right forearm 20 gauge patent. AV shunt in left upper arm. Pt. in no distress. Pt. has no complaints of pain or discomfort. Bed locked in lowest position with bed rails up. comfort measures provided. call light within reach. Will continue to monitor
[2018-08-08] MEDS: FOLIC ACID/VITAMIN B COMP W-C TABLET PO SCH (08:42)
[2018-08-08] MEDS: FERROUS SULFATE 325 MG TABEC PO SCH (08:42)
[2018-08-08] MEDS: ASPIRIN 81 MG TAB.CHEW PO SCH (08:42)
[2018-08-08] MEDS: FOLIC ACID 1 MG TABLET PO SCH (08:42)
[2018-08-08] MEDS: DOCUSATE SODIUM 100 MG CAPSULE PO SCH (08:43)
[2018-08-08] MEDS: CARBAMIDE PEROXIDE OTIC DROP 15 ML BOTTLE EACH EAR SCH ×2 (08:43→20:56)
[2018-08-08 10:09] LABS: HEPATITIS B SURFACE AB Reactive (.); HEPATITIS B SURFACE AG Negative (Negative)
[2018-08-08 11:15] VITALS: BP 117/51
[2018-08-08] MEDS ORDERED: LEVO500P10 IV (14:03)
[2018-08-08] MEDS ORDERED: METR500P3 IV (14:03)
[2018-08-08 16:11] VITALS: BP 128/62
--- NOTE | 2018-08-08 18:33 | NUR ---
patient alert oriented x4. IV in right forearm 20 gauge hep locked. AV shunt in left upper arm. Pt. is to be discharged at 1999. Patient in no distress. Patient denies any pain or discomfort. Comfort measures provided. Bed in lowest position, locked, with 2 side rails up. Call light within reach.
--- NOTE | 2018-08-08 19:20 | NUR ---
RECEIVED PT AWAKE, ALERT AND ORIENTEDX4. PT TO BE DISCHARGED. PT IN NO ACUTE DISTRESS. SAFETY AND COMFORT PROVIDED. WILL CONTINUE TO MONITOR.
[2018-08-08] MEDS: risperiDONE 0.25 MG TABLET PO SCH (20:55)
--- NOTE | 2018-08-08 21:15 | NUR ---
PT DISCHARGE. 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 BELONGING LIST GIVEN. DISCHARGE INSTRUCTIONS GIVEN PT UNDERSTAND. DISCHARGE PAPERS GIVEN. ID BAND TAKEN OUT.PT STABLE.
== END 2018-08-08 21:22 | DRG 391 ==
LOC: ER 22:35 → MEDSURG3 08-05 03:25
PROVIDERS: ADMIT Internal Medicine; ATTEND Internal Medicine
PROC: 5A1D70Z Performance of Urinary Filtration, Intermittent, Less than 6 Hours Per Day (ICD-10-PCS; principal; 2018-08-05)
DX: K57.32 Diverticulitis of large intestine without perforation or abscess without bleeding (principal); N18.6 End stage renal disease; I13.11 Hypertensive heart and chronic kidney disease without heart failure, with stage 5 chronic kidney disease, or end stage renal disease; N13.1 Hydronephrosis with ureteral stricture, not elsewhere classified; M48.56XA Collapsed vertebra, not elsewhere classified, lumbar region, initial encounter for fracture; Z99.2 Dependence on renal dialysis; D63.1 Anemia in chronic kidney disease; K21.9 Gastro-esophageal reflux disease without esophagitis; I70.0 Atherosclerosis of aorta; M48.061 Spinal stenosis, lumbar region without neurogenic claudication; N25.0 Renal osteodystrophy; M43.16 Spondylolisthesis, lumbar region; K44.9 Diaphragmatic hernia without obstruction or gangrene; J98.4 Other disorders of lung; E27.9 Disorder of adrenal gland, unspecified; D69.6 Thrombocytopenia, unspecified
CPT/HCPCS: 36415; 71045; 83735; 84100; 85025; 86706; 86803; 87340; 90937; 93005; A4663; G0378; J1956; J2270; J2405; J3490